=== PATIENT | female | born 1980 | race African-American/Black ===

== ENCOUNTER 2018-05-22 15:13 | Inpatient (IN) | END 2018-05-24 09:41 | disposition left against medical advice (07) | DRG 833 ==

== ENCOUNTER 2018-06-13 12:20 | Inpatient (IN) | END 2018-06-15 13:43 | disposition home or self-care (01) | DRG 807 ==

== ENCOUNTER 2018-09-24 01:58 | Inpatient (IN) | payer BC ==
[~2018-09-24] VITALS: Ht 162.6 cm; Wt 41.3 kg
[~2018-09-24 01:58] MED LIST: PREN1TAB79 PO
[2018-09-24 02:00] VITALS: BP 155/83; PULSE 63; RESP 19
--- NOTE | 2018-09-24 03:06 | HP ---
Date/Time of Note Date/Time of Note DATE: 09/24/18 TIME: 03:06 Assessment/Plan VTE Prophylaxis SCD applied (from Nsg): Yes Pharmacological prophylaxis: LMWH Assessment/Plan Assessment/Plan 1. Abd pain with Intractable nausea and vomiting - May be secondary to gastroenteritis - CT abd/pelvis from [facility] reviewed with incidental findings of pelvic congestion - supportive care - Zofran/Reglan as needed - IVF on board 2. Acute renal failure, prerenal - Cr 1.96 at [facility] - IVF and will avoid nephrotoxic agents 3. Acute dehydration - elevated Hgb/Hct - IVF and monitor for improvement 4. ?PID - will check chlamydia and gonorrhea cultures - advised patient to obtain [employer] for close follow up 5. h/o gastric ulcers - on pepcid at home but ran out of script so has been off for a while - no noted GI bleeding 6. diarrhea - stool studies sent - no recent antibiotic use so doubt cdiff 7. Diet - clears for now 8. Disposition - Admit to med/surg for treatment of MULU and acute dehydration secondary to abdominal sx HPI/ROS Admit Date/Time Admit Date/Time Sep 24, 2018 at 01:58 Hx of Present Illness 38 yo F with PMH gastric ulcers presented to OSH secondary to intractable nausea, vomiting, and abdominal pain for the past 5 days. Patient initially presented to [facility] on 09/20/[address] abd/pelvis was negative. Patient was discharged home and returned to [facility] again and was discharged. Patient presented to [facility] for the same symptoms on 09/23/18 with new findings of MULU. Patient states she was drinking lemonade with her meal when the nausea and vomiting started and has not improved. She denies any jared bleeding in emesis and last episode was in [facility] ED and was green in color. Patient also admits to diarrhea and denies any presence of blood. Patient admi ts to daughter being sick with a cold but no one else in family have similar symptoms. Of note as well, patient admits to currently being on her menstrual cycle but did note discharge prior. She also admits to occassional discomfort when engaging in intercourse with . She had Chlamydia in 2003 but was treated with no further issues. She does not currently follow with a non destructive tester. Labs from [facility] Na 134, k 3.6, Cl 99, Co2 22, Cr 1.96, BUN 17, AST 15, ALT 15, Alk Phos 98, Ca 10.7, Lipase 66 hgb 18.9, hct 53.5 ROS All 12 systems reviewed and pertinent positives as per HPI. All others ne gative. Constitutional: fatigue, nausea; No chills Eyes: No discharge ENT: No congestion Respiratory: No cough, No shortness of breath, No sputum, No wheezing Cardiovascular: No chest pain, No lightheadedness, No palpitations Gastrointestinal: pain, diarrhea, nausea, vomiting; No constipation Genitourinary: bleeding, discharge, flank pain; No hematuria Musculoskeletal: back pain Skin: No bruising, No laceration, No rash Neurologic: No dizziness, No focal-weakness, No headache, No syncope Endocrine: no complaints Lymphatic: no complaints Psychological: nl mood/affect Immunologic: no complaints PMH/Family/Social Past Medical History Medical History: other (gastric ulcer, ovarian cysts) Coded Allergies: codeine (Verified Allergy, Intermediate, 05/22/18) rash and brake out Past Surgical History Past Surgical Hx: noncontributory Family History Significant Family History: no pertinent family hx Social History Alcohol Use: none Smoking Status: Never smoker Drug Use: marijuana Exam/Review of Systems Vital Signs Vitals Vital Signs Date Temp Pulse Resp B/P (MAP) Pulse Ox O2 O2 Flow FiO2 Time Delivery Rate 09/24/18 98.4 19 155/83 98 02:00 (107) Exam Exam General: Patient is a pleasant female, currently lying in bed in no acute distress, thin frame HEENT: Atraumatic, normocephalic. The pupils are equal, round and reactive. Extraocular motor are intact Neck: Supple with full range of motion. No rigidity or meningismus Chest: Nontender Lungs: Clear to auscultation bilaterally no crackles rales or wheezing Heart: Normal S1-S2, Regular rhythm and rate. no murmurs Abdomen: Soft , mildly tender epigastric area, nondistended , bowel sounds are present. No guarding no rebound tenderness , No masses or organomegaly. No costovertebral temporal angle mass Extremities: Normal to inspection, no edema no cyanosis Neurologic: Normal mental status, speech normal, cranial nerves II through XII are intact, motor and sensory are intact, Additional Comments No home medications PATRICIA CHERRY MD Sep 24, 2018 03:06
[2018-09-24] MEDS ORDERED: ACETAMINOPHEN 325 MG TAB PO PRN (03:30)
[2018-09-24] MEDS ORDERED: DOCUSATE SODIUM 100 MG CAP PO PRN (03:30)
[2018-09-24] MEDS ORDERED: MAGNESIUM HYDROXIDE 30ML CUP PO PRN (03:30)
[2018-09-24] MEDS ORDERED: NACL 0.9% 3 ML SYG IV SCH (03:30)
[2018-09-24] MEDS: SOD CHLORIDE 0.9% 1,000 ML IV SCH ×2 (03:43→13:59)
[2018-09-24 07:12] VITALS: BP 134/89; RESP 18
[2018-09-24] MEDS: METOCLOPRAMIDE 10 MG INJ IV PRN ×3 (07:56→20:08)
[2018-09-24] MEDS: morphine 2 MG INJ IV PRN ×3 (07:58→23:08)
[2018-09-24] MEDS ORDERED: FAMOTIDINE 20 MG INJ IV SCH (09:00)
--- NOTE | 2018-09-24 14:11 | QN ---
Documentation Comment 38-year-old male with history of gastric ulcers, here with intractable alissa sea/vomiting/abdominal pain times 5-day duration. Patient continues to have abdominal pain, nausea, vomiting. Patient also admits to bilateral flank pain. She denies any dysuria or hematuria. At this time, we recommend getting a GI consult as patient also has a history of gastric ulcers and her symptoms are relating to her eating. We will also do a urinalysis and culture to rule out any possible UTI. We will also start Cipro and Flagyl empirically. Further imaging studies deferred to GI team. Patient was seen in collaboration with BRAIN Xavier NP Sep 24, 2018 14:11
--- NOTE | 2018-09-24 14:25 | CONS ---
Assessment/Plan Assessment/Plan Hospital Course (Demo Recall) Summary Assessment and Plan: Assessment: Intractable nausea and vomiting -PUD vs marijuana induced versus other Diarrhea- improved History of gastric ulcers Ruling out PID Marijuana use Plan: Clear liquid diet NPO after 09/25/18 0800 EGD tomorrow 09/25/18 Continue anti-emetic medication Endoscopy - risks/benefits/alternatives/indications of procedure and se dation/anesthesia discussed with patient who states understanding and gives informed consent to proceed. Patient has been empirically started on Cipro/Flagyl for diarrhea Change H2 nohemi to PPI Stool studies pending Given CT results at [facility]- will recheck lipase/amylase Patient seen in collaboration with Dr. Hanley CC: STEF HANLEY ; Consultation Date/Type/Reason Admit Date/Time Sep 24, 2018 at 01:58 Date of Consultation: Sep 24, 2018 Type of Consult GI Reason for Consultation Persistent nausea/vomiting/diarrhea Date/Time of Note DATE: 09/24/18 TIME: 14:18 Hx of Present Illness This a 38-year-old female past medical history of gastric ulcers diagnosed in 2014 who initially started complaining of subjective fevers nausea/vomiting, diarrhea she presented to [facility] about 8 days ago at that time was deemed secondary to food poisoning versus viral illness and was discharged. However symptoms continued to persist vomiting became progressively worse as well as abdominal pain she represented to [facility] where laboratory was completed revealing dehydration and elevated creatinine secondary to dehydration likely. There she had a CT abdomen/pelvis with contrast which revealed mild motion related artifact however no definite acute intra-abdominal or pelvic abnormality noted. No evidence of intestinal obstruction or appendicitis, free air or abscess. Borderline prominent pancreatic duct caliber without evidence of acute pancreatitis or biliary ductal dilation, perhaps on a bias of this. Further workup could include consideration for MRCP on a nonemergent basis. Incidentally noted is a prominence of the periuterine vascular bilaterally which can be seen in the setting of pelvic congestion syn drome associated with chronic pelvic pain. Transferred to [facility] due to insurance reasons GI has been consulted for persistent nausea/vomiting and worsening of pain postprandial. At time evaluation patient states diarrhea has resolved and currently complains of upper abdominal discomfort morphine helps but does not relieve the pain completely she feels slightly better with Reglan is only able to tolerate clear liquid diet fairly at this time. Socially patient denies alcohol use, drug use, smoking cigarettes. She does states she smokes marijuana daily however she notes that she has cut down recently but still continues to smoke at least "one blunt" per day. Patient states alissa sea/vomiting, abdominal pain is not relieved by anything in particular and is aggravated by eating. Given clinical picture discussed plan for upper endoscopy tomorrow reviewed risk/benefits alternatives patient verbalized understanding is agreeable to procedure. Additionally will change H2 nohemi to PPI twice daily and will start Carafate. Further recommend agents based on clinical course. Review of Systems: A 12 system, review was conducted and is negative except as noted in the HPI or here. Past Medical History Medical History: other (gastric ulcer, ovarian cysts) Home Meds Reported Medications Vit W-Ca,Fe,FA(<1 mg) ( Vitamins) 1 Each Tablet, 1 EACH PO, TAB 05/22/18 Medications Current Medications Sodium Chloride 1,000 ml @ 100 mls/hr Q10H IV Last administered on 09/24/18at 13:59; Admin Dose 100 MLS/HR; Start 09/24/18 at 03:02 IV Flush (NS 3 ml) 3 ml PER PROTOCOL IV ; Start 09/24/18 at 03:30 Ondansetron HCl (Zofran Inj) 4 mg Q6H PRN IV NAUSEA/VOMITING; Start 09/24/18 at 03:30 Metoclopramide HCl (Reglan) 10 mg Q6H PRN IV NAUSEA/VOMITING Last administered on 09/24/18at 14:06; Admin Dose 10 MG; Start 09/24/18 at 03:30 Acetaminophen (Tylenol Tab) 650 mg Q6H PRN PO .PAIN 1-3 OR TEMP; Start 09/24/18 at 03:30 Docusate Sodium (Colace) 100 mg Q12H PRN PO .CONSTIPATION; Start 09/24/18 at 03:30 Magnesium Hydroxide (Milk Of Mag) 30 ml DAILY PRN PO .CONSTIPATION; Start 09/24/18 at 03:30 Morphine Sulfate (morphine) 2 mg Q4H PRN IV SEVERE PAIN LEVEL 7-10 Last ad ministered on 09/24/18at 13:59; Admin Dose 2 MG; Start 09/24/18 at 04:00 Famotidine (Pepcid) 20 mg Q12 PO ; Start 09/24/18 at 21:00 Allergies: Coded Allergies: codeine (Verified Allergy, Intermediate, 05/22/18) rash and brake out Past Surgical History Past Surgical Hx: noncontributory Social History Alcohol Use: none Smoking Status: Never smoker Drug Use: marijuana Exam/Review of Systems Exam Vitals Vital Signs Date Temp Pulse Resp B/P (MAP) Pulse Ox O2 O2 Flow FiO2 Time Delivery Rate 09/24/18 98.6 18 134/89 94 07:12 (104) 09/24/18 63 02:00 Intake and Output 09/23/18 09/23/18 09/24/18 1515:00 23:00 07:00 IntakeIntake Total 150 ml BalanceBalance 150 ml PHYSICAL EXAMINATION: GENERAL: Well developed, well nourished, alert & oriented x 3, in no acute distress SKIN: No lesions. EYES: Pupils equal reactive to light, no discharge. EARS/NOSE AND THROAT: Ears normal, nose normal NECK: Supple, no masses CHEST: Inspection within normal limits. CARDIOVASCULAR: Heart: Regular rate and rhythm RESPIRATORY: Lungs clear to auscultation GASTROINTESTINAL AND LIVER: Abdomen: Soft, upper abd tenderness, lower back tenderness, non-distended, no hernias, no masses, no organomegaly, no ascites, no guarding, no rebound tenderness, normoactive bowel sounds. Rectal: Deferred. EXTREMITIES: No cyanosis, clubbing or edema. Results Result Diagram: 09/24/18 0534 09/24/18 0534 Results 24hrs Laboratory Tests Test 09/24/18 05:34 White Blood Count 5.6 Red Blood Count 4.92 # Hemoglobin 14.6 # Hematocrit 42.1 # Mean Corpuscular Volume 85.6 Mean Corpuscular Hemoglobin 29.7 Mean Corpuscular Hemoglobin Concent 34.7 Red Cell Distribution Width 12.9 Platelet Count 277 # Mean Platelet Volume 9.4 Immature Granulocytes % 0.400 Neutrophils % 47.9 Lymphocytes % 41.3 Monocytes % 9.3 Eosinophils % 0.2 Basophils % 0.9 Nucleated Red Blood Cells % 0.0 Immature Granulocytes # 0.020 Neutrophils # 2.7 Lymphocytes # 2.3 Monocytes # 0.5 Eosinophils # 0.0 Basophils # 0.1 Nucleated Red Blood Cells # 0.0 Sodium Level 138 Potassium Level 3.3 L Chloride Level 104 Carbon Dioxide Level 22 Anion Gap 12 Blood Urea Nitrogen 16 Creatinine 1.01 H Est Glomerular Filtrat Rate mL/min > 60 Glucose Level 109 Calcium Level 9.1 Magnesium Level 2.0 Total Bilirubin 0.3 Direct Bilirubin 0.00 Indirect Bilirubin 0.3 Aspartate Amino Transf (AST/SGOT) 16 Alanine Aminotransferase (ALT/SGPT) 15 Alkaline Phosphatase 67 Total Protein 7.5 Albumin 4.3 Globulin 3.20 Albumin/Globulin Ratio 1.34 Thyroid Stimulating Hormone (TSH) 1.330 Medications Medication Current Medications Sodium Chloride 1,000 ml @ 100 mls/hr Q10H IV Last administered on 09/24/18at 13:59; Admin Dose 100 MLS/HR; Start 09/24/18 at 03:02 IV Flush (NS 3 ml) 3 ml PER PROTOCOL IV ; Start 09/24/18 at 03:30 Ondansetron HCl (Zofran Inj) 4 mg Q6H PRN IV NAUSEA/VOMITING; Start 09/24/18 at 03:30 Metoclopramide HCl (Reglan) 10 mg Q6H PRN IV NAUSEA/VOMITING Last administered on 09/24/18at 14:06; Admin Dose 10 MG; Start 09/24/18 at 03:30 Acetaminophen (Tylenol Tab) 650 mg Q6H PRN PO .PAIN 1-3 OR TEMP; Start 09/24/18 at 03:30 Docusate Sodium (Colace) 100 mg Q12H PRN PO .CONSTIPATION; Start 09/24/18 at 03:30 Magnesium Hydroxide (Milk Of Mag) 30 ml DAILY PRN PO .CONSTIPATION; Start 09/24/18 at 03:30 Morphine Sulfate (morphine) 2 mg Q4H PRN IV SEVERE PAIN LEVEL 7-10 Last administered on 09/24/18at 13:59; Admin Dose 2 MG; Start 09/24/18 at 04:00 Famotidine (Pepcid) 20 mg Q12 PO ; Start 09/24/18 at 21:00 EMMA MONTESINOS Sep 24, 2018 14:25
[2018-09-24 15:05] VITALS: BP 144/74; PULSE 67; RESP 18
[2018-09-24] MEDS ORDERED: POTASSIUM CHLORIDE (SR) 20 MEQ TAB PO STA (15:18)
[2018-09-24] MEDS: PANTOPRAZOLE (EC) 40 MG TAB PO SCH (17:24)
[2018-09-24] MEDS: SUCRALFATE (100 MG/ML) 10ML CUP PO SCH ×2 (17:24→20:08)
[2018-09-24] MEDS ORDERED: morphine 4 MG/ML VIAL IV SCH (18:05)
[2018-09-24 20:25] VITALS: BP 123/65; PULSE 63; RESP 18
[2018-09-24] MEDS ORDERED: FAMOTIDINE 20 MG TAB PO SCH (21:00)
[2018-09-24] MEDS: metroNIDAZOLE 500 MG/NS (PMX) 100 ML IVPB SCH (21:28)
[2018-09-24] MEDS: CIPROFLOXACIN 400MG/D5W 200 ML IVPB SCH (23:05)
[2018-09-24] MEDS: ONDANSETRON 4 MG INJ IV PRN (23:10)
[2018-09-25] VITALS (11 sets, daily range): BP systolic 115–136; BP diastolic 56–78; PULSE 58–84; RESP 14–28
[2018-09-25] MEDS: SOD CHLORIDE 0.9% 1,000 ML IV SCH ×3 (02:12→14:26)
[2018-09-25] MEDS: morphine 2 MG INJ IV PRN ×4 (04:39→19:12)
[2018-09-25] MEDS: METOCLOPRAMIDE 10 MG INJ IV PRN (04:40)
[2018-09-25] MEDS: PANTOPRAZOLE (EC) 40 MG TAB PO SCH ×2 (06:00→18:00)
[2018-09-25] MEDS: metroNIDAZOLE 500 MG/NS (PMX) 100 ML IVPB SCH ×3 (06:00→22:47)
[2018-09-25] MEDS: SUCRALFATE (100 MG/ML) 10ML CUP PO SCH ×4 (08:28→21:24)
[2018-09-25] MEDS: CIPROFLOXACIN 400MG/D5W 200 ML IVPB SCH ×2 (08:28→21:24)
[2018-09-25] MEDS: ONDANSETRON 4 MG INJ IV PRN (08:31)
[2018-09-25] MEDS ORDERED: TRIMETHOBENZAMIDE 100 MG/ML VIAL IM ONE (11:00)
--- NOTE | 2018-09-25 11:10 | PN ---
Date/Time of Note Date/Time of Note DATE: 09/25/18 TIME: 11:09 Assessment/Plan VTE Prophylaxis SCD applied (from Nsg): Yes Pharmacological prophylaxis: NA/contraindicated Pharm contraindication: low risk/ambulating Lines/Catheters IV Catheter Type (from Nrsg): Peripheral IV Assessment/Plan Hospital Course SUBJECTIVE: Patient continued to have nausea despite Reglan and Zofran. Abdominal pain improved. She is scheduled for EGD evaluation today. OBJECTIVE: Vital signs-see below PHYSICAL EXAM: Constitutional: Well-developed, adequately built, lying in bed comfortably. Psych: nl mood/affect, no complaints Head: atraumatic, normocephalic Eyes: nl conjunctiva, nl sclera ENMT: mucosa pink and moist, nl external ears & nose Neck: non-tender, supple Respiratory: clear to auscultation, normal air movement Cardiovascular: nl pulses, regular rate and rhythm Gastrointestinal: +Tender bilaterally. non-tender, soft, bowel sounds active in all 4 quadrants. Musculoskeletal/extremities: nl extremities to inspection, motor strength equal bilaterally, no focal deficit. Normal pulses,no cyanosis, no edema. Neurological: Alert oriented 3,nl speech, nl strength Skin: nl turgor ASSESSMENT/PLAN:38-year-old male with history of gastric ulcers, daily marijuana use, here with intractable nausea/vomiting/abdominal pain times 5-day duration. 1. Intractable N/V/abd pain/diarrhea -Diarrhea/vomiting resolved. Still with nausea, mild abdominal discomfort -Rule out gastroenteritis versus PUD versus others. -Counseled on cessation of marijuana product -Continue empiric Cipro+ Flagyl, PPI, IV fluids, Reglan. We will add Tigan for persistent nausea. -Scheduled for EGD evaluation, follow-up gastroenterology recommendations 2. History of gastric ulcers -On PPI 3. Marijuana use. -Cessation advised DVT prophylaxis: SCDs PUD prophylaxis: PPI CODE STATUS: Full code Diet: N.p.o. for procedure. Disposition: Continue current management. Follow-up GI recommendations. Patient was seen in collaboration with Result Diagram: 09/24/1834 09/24/18 0534 Results 24hrs Laboratory Tests Test 09/25/18 06:03 Amylase Level 73 Lipase 59 Exam/Review of Systems Exam Vitals Vital Signs Date Temp Pulse Resp B/P (MAP) Pulse Ox O2 O2 Flow FiO2 Time Delivery Rate 09/25/18 98.1 58 16 120/59 9 Room Air 07:55 (79) Intake and Output 09/24/18 09/24/18 09/25/18 1515:00 23:00 07:00 IntakeIntake Total 1710 ml 600 ml 600 ml BalanceBalance 1710 ml 600 ml 600 ml Results Results 24hrs Laboratory Tests Test 09/25/18 06:03 Amylase Level 73 Lipase 59 Medications Medication Current Medications Sodium Chloride 1,000 ml @ 100 mls/hr Q10H IV Last administered on 09/25/18 02:12; Admin Dose 100 MLS/HR; Start 09/24/18 at 03:02 IV Flush (NS 3 ml) 3 ml PER PROTOCOL IV ; Start 09/24/18 at 03:30 Ondansetron HCl (Zofran Inj) 4 mg Q6H PRN IV NAUSEA/VOMITING Last administered on 09/25/18 08:31; Admin Dose 4 MG; Start 09/24/18 at 03:30 Metoclopramide HCl (Reglan) 10 mg Q6H PRN IV NAUSEA/VOMITING Last administered on 09/25/18 04:40; Admin Dose 10 MG; Start 09/24/18 at 03:30 Acetaminophen (Tylenol Tab) 650 mg Q6H PRN PO .PAIN 1-3 OR TEMP; Start 09/24/18 at 03:30 Docusate Sodium (Colace) 100 mg Q12H PRN PO .CONSTIPATION; Start 09/24/18 at 03:30 Magnesium Hydroxide (Milk Of Mag) 30 ml DAILY PRN PO .CONSTIPATION; Start 09/24/18 at 03:30 Morphine Sulfate (morphine) 2 mg Q4H PRN IV SEVERE PAIN LEVEL 7-10 Last administered on 09/25/18 08:34; Admin Dose 2 MG; Start 09/24/18 at 04:00 Ciprofloxacin/ Dextrose 200 ml @ 200 mls/hr Q12 IVPB Last administered on 09/25/18 08:28; Admin Dose 200 MLS/HR; Start 09/24/18 at 21:00 Metronidazole 100 ml @ 100 mls/hr Q8 IVPB Last administered on 09/25/18 06:00; Admin Dose 100 MLS/HR; Start 09/24/18 at 22:00 Pantoprazole (Protonix Tab) 40 mg BID@06,18 PO Last administered on 09/25/18at 06:00; Admin Dose 40 MG; Start 09/24/18 at 18:00 Sucralfate (Carafate Susp) 1 gm QID PO Last administered on 09/25/18at 08:28; Admin Dose 1 GM; Start 09/24/18 at 17:00 BRAIN LIZARRAGA NP Sep 25, 2018 11:09
[2018-09-25] MEDS ORDERED: TRIMETHOBENZAMIDE 100 MG/ML VIAL IM PRN (17:00)
--- NOTE | 2018-09-25 17:42 | PREAC ---
Date/Time of Note Date/Time of Note DATE: 09/25/18 TIME: 17:41 Anesthesia Eval and Record Evaluation Time Pre-Procedure Interview DATE: 09/25/18 TIME: 17:41 Age 38 Sex female NPO: 8 hrs Preoperative diagnosis N/V abd apin Planned procedure EGD Past Medical History Past Medical History: Includes Renal: MULU GI: Other (gastric ulcer) Surgery & Anesthesia Issues No known issue Meds Anticoagulation: No Beta Clifton within 24 hr: No Reason Beta Clifton not given: Pt. not on B-Clifton Reported Medications Vit W-Ca,Fe,FA(<1 mg) ( Vitamins) 1 Each Tablet, 1 EACH PO, TAB 05/22/18 Current Medications Sodium Chloride 1,000 ml @ 100 mls/hr Q10H IV Last administered on 09/25/18at 14:26; Admin Dose 100 MLS/HR; Start 09/24/18 at 03:02 IV Flush (NS 3 ml) 3 ml PER PROTOCOL IV ; Start 09/24/18 at 03:30 Ondansetron HCl (Zofran Inj) 4 mg Q6H PRN IV NAUSEA/VOMITING Last administered on 09/25/18at 08:31; Admin Dose 4 MG; Start 09/24/18 at 03:30 Metoclopramide HCl (Reglan) 10 mg Q6H PRN IV NAUSEA/VOMITING Last administered on 09/25/18at 04:40; Admin Dose 10 MG; Start 09/24/18 at 03:30 Acetaminophen (Tylenol Tab) 650 mg Q6H PRN PO .PAIN 1-3 OR TEMP; Start 09/24/18 at 03:30 Docusate Sodium (Colace) 100 mg Q12H PRN PO .CONSTIPATION; Start 09/24/18 at 03:30 Magnesium Hydroxide (Milk Of Mag) 30 ml DAILY PRN PO .CONSTIPATION; Start 09/24/18 at 03:30 Morphine Sulfate (morphine) 2 mg Q4H PRN IV SEVERE PAIN LEVEL 7-10 Last administered on 09/25/18at 12:51; Admin Dose 2 MG; Start 09/24/18 at 04:00 Ciprofloxacin/ Dextrose 200 ml @ 200 mls/hr Q12 IVPB Last administered on 09/25/18at 08:28; Admin Dose 200 MLS/HR; Start 09/24/18 at 21:00 Metronidazole 100 ml @ 100 mls/hr Q8 IVPB Last administered on 09/25/18at 14:22; Admin Dose 100 MLS/HR; Start 09/24/18 at 22:00 Pantoprazole (Protonix Tab) 40 mg BID@06,18 PO Last administered on 09/25/18at 06:00; Admin Dose 40 MG; Start 09/24/18 at 18:00 Sucralfate (Carafate Susp) 1 gm QID PO Last administered on 09/25/18at 08:28; A dmin Dose 1 GM; Start 09/24/18 at 17:00 Trimethobenzamide HCl (Tigan) 200 mg Q6H PRN IM NAUSEA AND/OR VOMITING; Start 09/25/18 at 17:00 Meds reviewed: Yes Allergies Coded Allergies: codeine (Verified Allergy, Intermediate, 05/22/18) rash and brake out Allergies Reviewed: Yes Labs/Studies Labs Reviewed: Reviewed by anesthesiologist Result Diagram: 09/24/1853309/24/18533 test: Negative Studies: ECG (n/a), CXR (n/a) Pre-procedure Exam Last vitals Vital Signs Date Temp Pulse Resp B/P (MAP) Pulse Ox O2 O2 Flow FiO2 Time Delivery Rate 09/25/18 99.1 64 16 135/62 96 Room Air 14:50 (86) Airway: Adequate mouth opening Mallampati: Mallampati I Teeth: Normal Lung: Normal Heart: Normal ASA Physical Status ASA physical status: 2 Emergency: None Planned Anesthetic General/MAC: MAC Planned Pain Management Parenteral pain med Pre-operative Attestations Prior to commencing anesthesia and surgery, the patient was re-evaluated, there was verification of: *The patient's identity *The results of appropriate recent lab work and preoperative vital signs *The above evaluation not changing prior to induction *Anesthetic plan, risk benefits, alternative and complications discussed with patient/family; questions answered; patient/family understands, accepts and wishes to proceed. LELAND HIGGINS MD Sep 25, 2018 17:42
[2018-09-25] MEDS ORDERED: FENTAnyl 50 MCG/ML VIAL ONE (17:54)
[2018-09-25] MEDS ORDERED: PROPOFOL 20 ML ONE ×2 (17:54→18:12)
--- NOTE | 2018-09-25 17:59 | HPN ---
Date/Time of Note Date/Time of Note DATE: 09/25/18 TIME: 17:59 Interval H&P Admission Note Pt. seen H&P reviewed: No system changes EULOGIO FERRARO MD Sep 25, 2018 17:59
[2018-09-25] MEDS ORDERED: ONDANSETRON 4 MG INJ IV PRN (18:00)
--- NOTE | 2018-09-25 20:32 | PAC ---
Date/Time of Note Date/Time of Note DATE: 09/25/18 TIME: 20:32 Post-Anesthesia Notes Post-Anesthesia Note Last documented vital signs Vital Signs Date Temp Pulse Resp B/P (MAP) Pulse Ox O2 O2 Flow FiO2 Time Delivery Rate 09/25/18 98.2 59 16 136/78 100 Room Air 19:06 (97) 09/25/18 8.0 18:27 Activity: WNL Respiratory function: WNL Cardiovascular function: WNL Mental status: Baseline Pain reasonably controlled: Yes Hydration appropriate: Yes Nausea/Vomiting absent: No LELAND HIGGINS MD Sep 25, 2018 20:32
[2018-09-25] MEDS ORDERED: HYDROCODONE/APAP (5/325) TAB PO PRN (23:30)
[2018-09-25] MEDS ORDERED: IBUPROFEN 400 MG TAB NGT PRN (23:30)
[2018-09-26] MEDS: traMADol 50 MG TAB PO PRN ×2 (00:01→07:54)
[2018-09-26 02:00] VITALS: BP 117/61; PULSE 71; RESP 19
[2018-09-26] MEDS: metroNIDAZOLE 500 MG/NS (PMX) 100 ML IVPB SCH (05:45)
[2018-09-26] MEDS: PANTOPRAZOLE (EC) 40 MG TAB PO SCH (05:45)
[2018-09-26 07:40] VITALS: BP 126/67; PULSE 63; RESP 18
[2018-09-26] MEDS: METOCLOPRAMIDE 10 MG INJ IV PRN (07:57)
[2018-09-26] MEDS: SUCRALFATE (100 MG/ML) 10ML CUP PO SCH (08:03)
[2018-09-26] MEDS: CIPROFLOXACIN 400MG/D5W 200 ML IVPB SCH (09:28)
--- NOTE | 2018-09-26 10:14 | PDOCDIS ---
Discharge Instructions CONDITION [id number] Patient Condition: [id number] Stable HOME CARE INSTRUCTIONS: [id number] Diet Instructions: [id number] Regular FOLLOW UP/APPOINTMENTS Follow-up Plan Follow-up with primary care physician in 1 week Follow-up with 's office for biopsy result. [id number] [facility] [place] [address] Office Try using lactose-free milk, probiotics daily, cessation of marijuana products. BRAIN LIZARRAGA NP Sep 26, 2018 10:14
[2018-09-26] MEDS ORDERED: FAMO-96 PO (10:17)
[2018-09-26] MEDS ORDERED: ONDA4TAB8 PO (10:17)
--- NOTE | 2018-09-26 10:21 | DS ---
Date/Time of Note Date/Time of Note DATE: 09/26/18 TIME: 10:19 Discharge Summary Admission/Discharge Info Admit Date/Time Sep 24, 2018 at 01:58 Discharge Date/Time Discharge Diagnosis 1. Abdominal pain/intractable nausea/vomiting, likely GERD versus marijuana hyperemesis syndrome. Resolved. 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 EGD. Impression: Normal esophagus. No evidence of peptic ulcer disease, gastritis. Hospital Course 38-year-old male with history of gastric ulcers, daily marijuana use, here with intractable nausea/vomiting/abdominal pain times 5-day duration. Apparently, patient has been having increased use of marijuana recently secondary to family stress. Patient was ruled out for UTI, peptic ulcer disease. She had endoscopy on 09/25/2018. Patient's symptoms resolved. Stool C. difficile studies were not sent as there was no diarrhea in house. Nevertheless, she was treated with Cipro and Flagyl. She was able to tolerate diet and activities well. As per GI, her symptoms are more likely marijuana hyperemesis syndrome. There is no further inpatient workup indicated and patient is medically stable for discharge on Pepcid and PRN antiemetics. I counseled her on cessation of marijuana products, try using lactose-free milk as her symptoms get worse with drinking milk, limit use of coffee, try taking probiotics. Patient verbalized instructions. Approximately 60 m spent on coordinating the discharge on this patient. Patient was also advised to follow-up with 's office for EGD biopsy findings if she has not heard from the office. Patient was seen in collaboration with [facility] Active Scripts Ondansetron Hcl* (Zofran*) 4 Mg Tablet, 4 MG PO Q6H PRN for NAUSEA AND OR VOMITING, #30 TAB Prov:LIZARRAGA,BRAIN V. METEOROLOGIST LIAISON 09/26/18 Famotidine* (Pepcid*) 20 Mg Tablet, 20 MG PO BED TIME, #30 TAB Prov:LIZARRAGA,BRAIN V. METEOROLOGIST LIAISON 09/26/18 Reported Medications Vit W-Ca,Fe,FA(<1 mg) ( Vitamins) 1 Each Tablet, 1 EACH PO, TAB 05/22/18 Follow-up Plan Follow-up with primary care physician in 1 week Follow-up with 's office for biopsy result. [id number] [facility] [address] [place] [address] Office Try using lactose-free milk, probiotics daily, cessation of marijuana products. Primary Care Provider Not On Staff Doctor Pending Labs Laboratory Tests Test 09/25/18 11:30 09/26/18 05:47 Urine Color STRAW (YELLOW) Urine Clarity CLEAR (CLEAR) Urine pH 5.0 (5.0-9.0) Urine Specific [place] 1.003 (1.003-1.030) Urine Ketones TRACE mg/dL (NEGATIVE) Urine Nitrite NEGATIVE mg/dL (NEGATIVE) Urine Bilirubin NEGATIVE mg/dL (NEGATIVE) Urine Urobilinogen NEGATIVE mg/dL (NEGATIVE) Urine Leukocyte Esterase NEGATIVE Roque/ul Urine Microscopic RBC 0 /HPF (0-5) Urine Microscopic WBC 0 /HPF (0-5) Urine Squamous FEW /HPF (FEW) Epithelial Cells Urine Bacteria FEW /HPF (NONE SEEN) Urine Mucus FEW /HPF (NONE SEEN) Urine Hemoglobin 3+ mg/dL (NEGATIVE) Urine Glucose NEGATIVE mg/dL (NEGATIVE) Urine Total Protein NEGATIVE mg/dl (NEGATIVE) White Blood Count 3.0 10^3/ul (4.8-10.8) Red Blood Count 3.97 10^6/ul (4.20-5.40) Hemoglobin 12.0 g/dl (12.0-16.0) Hematocrit 34.6 % (37.0-47.0) Mean Corpuscular Volume 87.2 fl (82.0-101.0) Mean Corpuscular 30.2 pg (29.0-33.0) Hemoglobin Mean Corpuscular 34.7 g/dl (32.0-37.0) Hemoglobin Concent Red Cell Distribution 12.5 % (11.5-14.5) Width Platelet Count 219 10^3/UL (140-415) Mean Platelet Volume 9.4 fl (7.4-10.4) Immature Granulocytes % 0.300 % (0.001-0.429) Neutrophils % 48.9 % (39.0-77.0) Lymphocytes % 36.8 % (15.0-51.0) Monocytes % 9.4 % (0.0-11.0) Eosinophils % 3.3 % (0.0-7.0) Basophils % 1.3 % (0.0-2.0) Nucleated Red Blood Cells 0.0 /100WBC (0.0-0.0) % Immature Granulocytes # 0.010 10^3/ul (0.0-0.031) Neutrophils # 1.5 10^3/ul (1.6-7.5) Lymphocytes # 1.1 10^3/ul (0.8-2.9) Monocytes # 0.3 10^3/ul (0.3-0.9) Eosinophils # 0.1 10^3/ul (0.0-0.5) Basophils # 0.0 10^3/ul (0.0-0.1) Nucleated Red Blood Cells 0.0 10^3/ul (0.0-0.0) # Sodium Level 140 mmol/L (135-144) Potassium Level 3.5 mmol/L (3.5-5.1) Chloride Level 108 mmol/L (97-110) Carbon Dioxide Level 22 mmol/L (21-31) Anion Gap 10 (5-13) Blood Urea Nitrogen 6 mg/dl (7-20) Creatinine 0.78 mg/dl (0.44-1.00) Est Glomerular Filtrat > 60 mL/min (>60) Rate mL/min Glucose Level 73 mg/dl (70-220) Calcium Level 8.4 mg/dl (8.4-10.2) Magnesium Level 1.6 mg/dl (1.7-2.5) Microbiology Date/Time Source Procedure Growth Status 09/25/18 11:30 Clean Catch Urine Urine Culture - Preliminary NO Resulted GROWTH AFTER 24 HOURS BRAIN LIZARRAGA NP Sep 26, 2018 10:21
== END 2018-09-26 11:50 | disposition home or self-care (01) | DRG 392 ==
LOC: PP2 01:58
PROVIDERS: ADMIT Internal Medicine; ATTEND Internal Medicine
PROC: 0DB68ZX Excision of Stomach, Via Natural or Artificial Opening Endoscopic, Diagnostic (ICD-10-PCS; principal; 2018-09-25 17:30)
DX: R11.2 Nausea with vomiting, unspecified (principal); N17.9 Acute kidney failure, unspecified; E44.0 Moderate protein-calorie malnutrition; Z68.1 Body mass index [BMI] 19.9 or less, adult; T40.7X5A Adverse effect of cannabis (derivatives), initial encounter; E86.0 Dehydration; R19.7 Diarrhea, unspecified; K21.9 Gastro-esophageal reflux disease without esophagitis; Y92.019 Unspecified place in single-family (private) house as the place of occurrence of the external cause; Z87.11 Personal history of peptic ulcer disease
CPT/HCPCS: 80048; 80053; 81001; 82150; 83690; 83735; 84443; 85025; 87086; 87591; 88305; 88312; J0744; J2270; J2405; J2765; J3010; J3250; J7030

== ENCOUNTER 2018-12-09 15:04 | Inpatient (IN) | payer BC ==
[~2018-12-09] VITALS: Ht 162.6 cm; Wt 37.3 kg
[~2018-12-09 15:04] MED LIST changes: +FAMO-96 PO; +ONDA4TAB8 PO; -PREN1TAB79 PO
[2018-12-09] MEDS ORDERED: morphine 4 MG/ML VIAL IV STA ×2 (16:46→22:16)
[2018-12-09] MEDS ORDERED: ONDANSETRON 4 MG INJ IV STA (16:46)
[2018-12-09] MEDS ORDERED: SODIUM CHLORIDE 0.9% 1L BAG IV* STA (16:46)
[2018-12-09] MEDS ORDERED: CEFTRIAXONE 1 GM/50 ML (PMX) 50 ML IVPB STA (16:46)
[2018-12-09] MEDS ORDERED: CEPH250C PO (17:53)
[2018-12-09] MEDS ORDERED: ACETAMINOPHEN 325 MG TAB PO PRN ×2 (19:00→22:30)
[2018-12-09] MEDS ORDERED: ONDANSETRON 4 MG INJ IV PRN (19:00)
--- NOTE | 2018-12-09 19:04 | ERD ---
ER Documentation Chief Complaint Chief Complaint vomit since Sun, dx [email or web address] on [email or web address] no relief w meds. sob. weak. HPI Patient is a 38-year-old female with history of some renal disease who presents with back pain. She said that she had kidney problems with infection that started on Sunday. She has bilateral flank pain and subjective fevers. She was seen at [place] emergency department on December 06 and was told that she had a UTI was placed on antibiotics. Her creatinine at that time was 1.6. She has been vomiting and not getting better. She had ultrasound of the gallbladder and chest x-ray done on that day as well. Upon review of old medical records the patient one previous visit to the ER in September 2018. Review of the emergency department information exchange system shows visits to 2 separate emergency departments for a total of 4 visits over 1 year. Her primary doctor is Dr. Breen. ROS All systems reviewed and are negative except as per history of present illness. Medications Home Meds Reported Medications Cephalexin* (Cephalexin*) 250 Mg Capsule, 250 MG PO Q6, #28 CAP FOR 7 DAYS,START DATE 12/07/18 12/09/18 Discontinued Scripts Ondansetron Hcl* (Zofran*) 4 Mg Tablet, 4 MG PO Q6H PRN for NAUSEA AND OR VOMITING, #30 TAB Prov:LIZARRAGA,BRAIN V. SECURITY SYSTEMS TECHNICIAN 09/26/18 Famotidine* (Pepcid*) 20 Mg Tablet, 20 MG PO BED TIME, #30 TAB Prov:LIZARRAGA,BRAIN V. SECURITY SYSTEMS TECHNICIAN 09/26/18 Allergies Allergies: Coded Allergies: codeine (Verified Allergy, Intermediate, 12/09/18) rash and brake out PMhx/Soc History of Surgery: No Anesthesia Reaction: No Hx Neurological Disorder: No Hx Respiratory Disorders: No Hx Cardiac Disorders: No Hx Psychiatric Problems: No Hx Miscellaneous Medical Probl: Yes (FREQUENT UTI) Hx Alcohol Use: No Hx Substance Use: Yes (occasional use) Hx Tobacco Use: No Smoking Status: Never smoker FmHx Family History: diabetes Physical Exam Vitals Vital Signs Date Temp Pulse Resp B/P (MAP) Pulse Ox O2 O2 Flow FiO2 Time Delivery Rate 12/09/18 78 17 120/95 98 Room Air 17:41 (103) 12/09/18 98.8 139 26 173/76 100 15:46 (108) Physical Exam Const: Moderate distress Head: Atraumatic Eyes: Normal Conjunctiva ENT: Normal External Ears, Nose and Mouth. Neck: Full range of motion. No meningismus. Resp: Clear to auscultation bilaterally Cardio: Tachycardic rate without murmur Abd: Soft, diffuse tenderness to palpation Skin: No petechiae or rashes Back: Bilateral CVA tenderness to palpation Ext: No cyanosis, or edema Neur: Awake and alert Psych: Normal Mood and Affect Result Diagram: 12/09/18 1708 12/09/18 1708 Results 24 hrs Laboratory Tests Test 12/09/18 17:08 12/09/18 17:14 12/09/18 17:44 White Blood Count 6.2 10^3/ul Red Blood Count 6.35 10^6/ul Hemoglobin 18.7 g/dl Hematocrit 53.3 % Mean Corpuscular Volume 83.9 fl Mean Corpuscular Hemoglobin 29.4 pg Mean Corpuscular 35.1 g/dl Hemoglobin Concent Red Cell Distribution Width 12.0 % Platelet Count 460 10^3/UL Mean Platelet Volume 9.1 fl Immature Granulocytes % 0.500 % Neutrophils % 62.0 % Lymphocytes % 25.4 % Monocytes % 11.1 % Eosinophils % 0.0 % Basophils % 1.0 % Nucleated Red Blood Cells % 0.0 /100WBC Immature Granulocytes # 0.030 10^3/ul Neutrophils # 3.8 10^3/ul Lymphocytes # 1.6 10^3/ul Monocytes # 0.7 10^3/ul Eosinophils # 0.0 10^3/ul Basophils # 0.1 10^3/ul Nucleated Red Blood Cells # 0.0 10^3/ul Prothrombin Time 12.6 Sec Prothrombin Time Ratio 1.0 INR International 0.93 Normalized Ratio Activated Partial Thromboplast 33.9 Sec Time Sodium Level 135 mmol/L Potassium Level 4.0 mmol/L Chloride Level 94 mmol/L Carbon Dioxide Level 17 mmol/L Anion Gap 24 Blood Urea Nitrogen 47 mg/dl Creatinine 2.68 mg/dl Est Glomerular Filtrat 24 mL/min Rate mL/min Glucose Level 126 mg/dl Calcium Level 10.8 mg/dl Total Bilirubin 0.6 mg/dl Direct Bilirubin 0.00 mg/dl Indirect Bilirubin 0.6 mg/dl Aspartate Amino Transf (AST/SGOT) 22 IU/L Alanine < 6 IU/L Aminotransferase (ALT/SGPT) Alkaline Phosphatase 125 IU/L Troponin I < 0.012 ng/ml Total Protein 10.7 g/dl Albumin 5.4 g/dl Globulin 5.30 g/dl Albumin/Globulin Ratio 1.01 POC Venous Lactate 2.3 mmol/L Urine Color YELLOW Urine Clarity CLOUDY Urine pH 5.0 Urine Specific [place] 1.029 Urine Ketones 1+ mg/dL Urine Nitrite NEGATIVE mg/dL Urine Bilirubin NEGATIVE mg/dL Urine Urobilinogen NEGATIVE mg/dL Urine Leukocyte Esterase TRACE Roque/ul Urine Microscopic RBC 3 /HPF Urine Microscopic WBC 67 /HPF Urine Squamous Epithelial Cells FEW /HPF Urine Hemoglobin NEGATIVE mg/dL Urine Glucose NEGATIVE mg/dL Urine Total Protein 2+ mg/dl Urine Test NEGATIVE Current Medications Medications Dose Sig/Jam Start Time Status Last (Trade) Ordered Route PRN Stop Time Admin Dose Reason Admin Sodium 1,120 ml BOLUS OVER 2 12/09/18 DC 12/09/18 Chloride HOURS STAT 16:46 12/09/18 17:09 (NS) IV* 16:47 Morphine 4 mg ONCE STAT 12/09/18 DC 12/09/18 Sulfate IV 16:46 12/09/18 17:10 (morphine) 16:47 Ondansetron 4 mg ONCE STAT 12/09/18 DC 12/09/18 HCl (Zofran IV 16:46 12/09/18 17:10 Inj) 16:47 Ceftriaxone 50 ml @ ONCE STAT 12/09/18 DC 12/09/18 Sodium 100 mls/hr IVPB 16:46 12/09/18 17:43 17:15 Ondansetron 4 mg BRIDGE ORDER 12/09/18 HCl (Zofran PRN IV 19:00 12/10/18 Inj) NAUSEA/VOMITI 18:59 NG 650 mg ER BRIDGE 12/09/18 Acetaminophen PRN PO 19:00 12/10/18 (Tylenol .MILD PAIN 18:59 Tab) 1-3 OR TEMP Procedures/MDM Chest x-ray negative per radiology. CT abdomen pelvis pending at this time. EKG read by me: Rate/Rhythm: Regular rate and rhythm at a normal rate Intervals: Normal Impression: No evidence of ischemia or arrhythmia Sepsis Documentation: Patient's infectious symptoms have not stabilized and the patient is at risk of rapid decompensation. The patient will be admitted for careful hydration, antibiotic therapy, and infectious source control. SEVERE SEPSIS CRITERIA: Infectious source: Pyelonephritis End organ damage indicated by: Lactate greater than 2 SEPSIS MANAGEMENT Time of recognition of sepsis: 1713. Time of recognition of severe sepsis: 1713. Time of recognition of septic shock: No septic shock at this time. 3 HOUR BUNDLE Blood cultures x 2 before broad-spectrum antibiotics: Yes 30 ml/kg NS bolus completed Initial lactate 2.3 Repeat lactate pending SEPTIC SHOCK ASSESSMENT: No lactic acid > 4.0 No persistent hypotension (SBP < 90 or 40 mmHg drop, MAP < 65) despite 30 mL/kg IV fluid bolus VOLUME REASSESSMENT FOR SEPTIC SHOCK: No septic shock at this time PERSISTENT HYPOTENSION TREATMENT: Comfort care no Central line not Required Vasopressor started not required I considered further perfusion assessment with CVP measurement, SCVO2, bedside ultrasound volume assessment, passive leg raise, trial of further fluid bolus. And proceeded with 30 ml/kg fluid bolus of NSS, broad spectrum antibiotics, and admission. The patient will be admitted to the care of the panel team. The patient has acidosis as well as acute renal failure. Her creatinine has increased from her 1.6 on December 06. I believe this is likely from dehydration and prerenal renal failure. CRITICAL CARE Critical care time 35 minutes Emergent fluid management while maintaining close respiratory support. Provision of immediate and broad-spectrum antibiotic therapy. Simultaneous assessment for possible sources in order to direct targeted therapy. Consideration for invasive and chemical support to prevent cardiopulmonary collapse. Critical care time is independent of procedures performed. Departure Diagnosis: Primary Impression: Severe sepsis Additional Impressions: ARF (acute renal failure) Acute renal failure type: unspecified Qualified Codes: N17.9 - Acute kidney failure, unspecified Pyelonephritis Condition: Serious EVA YUNG MD December 09, 2018 19:04
[2018-12-09] MEDS: SOD CHLORIDE 0.9% 1,000 ML IV SCH (22:12)
[2018-12-09] MEDS ORDERED: NACL 0.9% 3 ML SYG IV SCH (22:30)
--- NOTE | 2018-12-10 05:41 | HP ---
Date/Time of Note Date/Time of Note DATE: 12/10/18 TIME: 05:39 Assessment/Plan VTE Prophylaxis Pharmacological prophylaxis: heparin Lines/Catheters IV Catheter Type (from Nrsg): Saline Lock Assessment/Plan Assessment/Plan 1. UTI with possible pyelonephritis -IV antibiotic, IV fluid -Follow-up culture results -Pain management 2. Acute renal insufficiency -NS IVF for now 3. Erythrocytosis: Likely secondary to dehydration -IV fluid Result Diagram: 12/09/18 1708 12/09/18 1708 Results 24hrs Laboratory Tests Test 12/09/18 17:08 12/09/18 17:14 12/09/18 17:44 12/09/18 21:28 White Blood Count 6.2 # Red Blood Count 6.35 #H Hemoglobin 18.7 #H Hematocrit 53.3 #H Mean Corpuscular Volume 83.9 Mean Corpuscular 29.4 Hemoglobin Mean Corpuscular 35.1 Hemoglobin Concent Red Cell Distribution 12.0 Width Platelet Count 460 #H Mean Platelet Volume 9.1 Immature Granulocytes % 0.500 H Neutrophils % 62.0 Lymphocytes % 25.4 Monocytes % 11.1 H Eosinophils % 0.0 Basophils % 1.0 Nucleated Red Blood 0.0 Cells % Immature Granulocytes # 0.030 Neutrophils # 3.8 Lymphocytes # 1.6 Monocytes # 0.7 Eosinophils # 0.0 Basophils # 0.1 Nucleated Red Blood 0.0 Cells # Prothrombin Time 12.6 Prothrombin Time Ratio 1.0 INR International 0.93 Normalized Ratio Activated 33.9 Partial Thromboplast Time Sodium Level 135 Potassium Level 4.0 Chloride Level 94 L Carbon Dioxide Level 17 L Anion Gap 24 H Blood Urea Nitrogen 47 H Creatinine 2.68 H Est Glomerular Filtrat 24 L Rate mL/min Glucose Level 126 Calcium Level 10.8 H Total Bilirubin 0.6 Direct Bilirubin 0.00 Indirect Bilirubin 0.6 Aspartate Amino 22 Transf (AST/SGOT) Alanine < 6 L Aminotransferase (ALT/SG PT) Alkaline Phosphatase 125 H Troponin I < 0.012 Total Protein 10.7 H Albumin 5.4 H Globulin 5.30 H Albumin/Globulin Ratio 1.01 POC Venous Lactate 2.3 *H Urine Color YELLOW Urine Clarity CLOUDY A Urine pH 5.0 Urine Specific [place] 1.029 Urine Ketones 1+ H Urine Nitrite NEGATIVE Urine Bilirubin NEGATIVE Urine Urobilinogen NEGATIVE Urine Leukocyte Esterase TRACE A Urine Microscopic RBC 3 Urine Microscopic WBC 67 H Urine Squamous FEW Epithelial Cells Urine Hemoglobin NEGATIVE Urine Glucose NEGATIVE Urine Total Protein 2+ H Urine Test NEGATIVE Lactic Acid Level 0.9 Test 12/09/18 21:37 POC Venous Lactate 1.1 HPI/ROS Admit Date/Time Admit Date/Time Hx of Present Illness This is a 38-year-old female with possible history of GERD who presented to the ER complaining of bilateral flank pain. Patient was recently diagnosed with UTI and has been taking antibiotic. In the ER her UA was consistent with UTI. CT abdomen/pelvis without acute findings. Initial lactic acid was 2.3. PMH/Family/Social Past Medical History Past Surgical Hx: other (HPI) Family History Significant Family History: no pertinent family hx Social History Alcohol Use: none Smoking Status: Never smoker Drug Use: none Exam Constitutional: alert, oriented, well developed Head: normocephalic, atraumatic Eyes: EOMI, PERRL Respiratory: clear to auscultation, normal air movement Cardiovascular: regular rate and rhythm, nl pulses Gastrointestinal: soft, other (Right lower quadrant tenderness elicited on palpation. Patient also with right flank pain) Extremities: normal pulses Medications Current Medications Ondansetron HCl (Zofran Inj) 4 mg BRIDGE ORDER PRN IV NAUSEA/VOMITING; Start 12/09/18 at 19:00; Stop 12/10/18 at 18:59 Acetaminophen (Tylenol Tab) 650 mg ER BRIDGE PRN PO .MILD PAIN 1-3 OR TEMP Last administered on 12/09/18at 21:59; Admin Dose 650 MG; Start 12/09/18 at 19:00; Stop 12/10/18 at 18:59 Sodium Chloride 1,000 ml @ 125 mls/hr Q8H IV Last administered on 12/09/18at 22:12; Admin Dose 125 MLS/HR; Start 12/09/18 at 22:12; Stop 12/12/18 at 22:11 IV Flush (NS 3 ml) 3 ml PER PROTOCOL IV ; Start 12/09/18 at 22:30 Acetaminophen (Tylenol Tab) 650 mg Q6H PRN PO .PAIN 1-3 OR TEMP; Start 12/09/18 at 22:30 Morphine Sulfate (morphine) 3 mg Q4H PRN IV .SEVERE PAIN 7-10; Start 12/09/18 at 22:30 Coded Allergies: codeine (Verified Allergy, Intermediate, 12/09/18) rash and brake out Past Surgical History Past Surgical Hx: noncontributory Family History Significant Family History: no pertinent family hx Social History Smoking Status: Never smoker Exam/Review of Systems Vital Signs Vitals Vital Signs Date Temp Pulse Resp B/P (MAP) Pulse Ox O2 O2 Flow FiO2 Time Delivery Rate 12/10/18 74 16 119/87 99 Room Air 04:09 (98) 12/10/18 98.8 00:15 MEGAN CANCHOLA MD December 10, 2018 05:41
[2018-12-10] MEDS: morphine 4 MG/ML VIAL IV PRN ×4 (06:35→21:42)
[2018-12-10] MEDS: SOD CHLORIDE 0.9% 1,000 ML IV SCH ×3 (06:35→18:29)
[2018-12-10 08:58] VITALS: BP 111/75; PULSE 60; RESP 20
[2018-12-10 09:00] VITALS: Ht 162.6 cm; Wt 37.3 kg
--- NOTE | 2018-12-10 10:01 | CONS ---
DATE OF ADMISSION: 12/09/2018 DATE OF CONSULTATION: 12/10/2018 TYPE OF CONSULTATION: Nephrology. REASON FOR CONSULTATION: Acute kidney injury. PHYSICIAN REQUESTING CONSULT: Megan Canchola MD HISTORY OF PRESENT ILLNESS: This is a 38-year-old female with a past medical history of GERD who pre sents to the [facility] with complaints of bilateral flank pain. The patient state s she was recently diagnosed with a urinary tract infection, has been taking antibiotics. The patien t states her pain however, in her bilateral flank has increased over the past several days associated with worsening abdominal pain, nausea, vomiting. As a result, she came to the Emergency Room. Upon arrival, the patient had a CT scan of abdomen and pelvis that showed no acute findings. Urinalysis was performed which showed evidence of pyuria. The patient was started on IV fluids and antibiotic t herapy. In terms of patient's renal history, the patient states that she has had no history of chronic kidney disease. Patient denies any prior history of acute kidney injury. The patient denies any family hi story of coronary artery disease. She does state that she has recurrent infection. The patient does admit to nausea, vomiting. She denies any NSAID use, any rashes. PAST MEDICAL HISTORY: History of gastroesophageal reflux disease, history of UTI. FAMILY HISTORY: No family history of kidney disease. SOCIAL HISTORY: Does not drink, smoke, do drugs. MEDICATIONS: Reviewed. ALLERGIES: Have been reviewed, please see list. PAST SURGICAL HISTORY: Has been reviewed. REVIEW OF SYSTEMS: A 14-point review of systems conducted. Pertinent positives stated in HPI, other posada negative. PHYSICAL EXAMINATION: VITAL SIGNS: Blood pressure is 101/79, respirations 16, pulse 68, temperature 98.0. HEENT: Head is normocephalic. NECK: Supple. HEART: Regular rate. LUNGS: Show diminished breath sounds at base. ABDOMEN: Soft, nontender to palpation without rebound or guarding. EXTREMITIES: Negative for clubbing, cyanosis, no edema. DERMATOLOGIC: No rashes. MUSCULOSKELETAL: No joint effusion. NEUROLOGIC: No change in exam. LABORATORY DATA: Have been reviewed. IMAGING STUDIES: Have been reviewed. ASSESSMENT AND PLAN: This is a 38-year-old female presenting with: 1. Nonoliguric acute kidney injury with previously normal baseline creatinine. Etiology of acute ki dney injury is likely secondary to volume depletion, hemodynamics. The patient's renal function has improved with IV hydration. Urinalysis was reviewed, no active sediment. The patient does have pyur ia, which can be seen in setting of urinary tract infection. Recommendation is to continue current m edical management. Continue IV antibiotics. Will deescalate IV fluids. Continue supportive care, r enally dose all meds, avoid nephrotoxins. 2. Lactic acidosis. Etiology is likely secondary to hemodynamics, volume depletion. The patient's lactic acid levels improved with IV hydration. Continue to monitor. 4. Metabolic acidosis secondary to acute kidney injury, resolved. 5. Mineral bone disorder, monitor calcium and phosphorus levels. 6. Urinary tract infection. Continue current medical management. Continue antibiotic therapy. Fol low up cultures. 7. Erythrocytosis. Etiology is secondary to volume depletion. The patient's hemoglobin levels have improved with IV fluids, continue to monitor. Thank you, Dr. Canchola, for this interesting consult. It will be a pleasure to follow patient with you throughout the hospital course. Dictated By: JES GARNER DO NR/NTS Conf#: [id number] DID#: [id number] CC: MEGAN CANCHOLA MD;*EndCC*
[2018-12-10 11:55] VITALS: BP 109/75; PULSE 64; RESP 20
--- NOTE | 2018-12-10 14:35 | PN ---
Date/Time of Note Date/Time of Note DATE: 12/10/18 TIME: 14:26 Assessment/Plan VTE Prophylaxis SCD applied (from Nsg): Yes Pharmacological prophylaxis: other Pharm contraindication: low risk/ambulating Lines/Catheters IV Catheter Type (from Nrsg): Peripheral IV Urinary Cath still in place: No Assessment/Plan Assessment/Plan 1. UTI, on 2. Dehydration from vomiting and poor intake from UTI, improved with IVF 3. Acute renal failure due to dehydration, resolved Result Diagram: 12/10/18 0552 12/10/18 0552 Results 24hrs Laboratory Tests Test 12/09/18 17:08 12/09/18 17:14 12/09/18 17:44 12/09/18 21:28 White Blood Count 6.2 # Red Blood Count 6.35 #H Hemoglobin 18.7 #H Hematocrit 53.3 #H Mean Corpuscular Volume 83.9 Mean Corpuscular 29.4 Hemoglobin Mean Corpuscular 35.1 Hemoglobin Concent Red Cell Distribution 12.0 Width Platelet Count 460 #H Mean Platelet Volume 9.1 Immature Granulocytes % 0.500 H Neutrophils % 62.0 Lymphocytes % 25.4 Monocytes % 11.1 H Eosinophils % 0.0 Basophils % 1.0 Nucleated Red Blood 0.0 Cells % Immature Granulocytes # 0.030 Neutrophils # 3.8 Lymphocytes # 1.6 Monocytes # 0.7 Eosinophils # 0.0 Basophils # 0.1 Nucleated Red Blood 0.0 Cells # Prothrombin Time 12.6 Prothrombin Time Ratio 1.0 INR International 0.93 Normalized Ratio Activated 33.9 Partial Thromboplast Time Sodium Level 135 Potassium Level 4.0 Chloride Level 94 L Carbon Dioxide Level 17 L Anion Gap 24 H Blood Urea Nitrogen 47 H Creatinine 2.68 H Est Glomerular Filtrat 24 L Rate mL/min Glucose Level 126 Calcium Level 10.8 H Total Bilirubin 0.6 Direct Bilirubin 0.00 Indirect Bilirubin 0.6 Aspartate Amino 22 Transf (AST/SGOT) Alanine < 6 L Aminotransferase (ALT/SG PT) Alkaline Phosphatase 125 H Troponin I < 0.012 Total Protein 10.7 H Albumin 5.4 H Globulin 5.30 H Albumin/Globulin Ratio 1.01 POC Venous Lactate 2.3 *H Urine Color YELLOW Urine Clarity CLOUDY A Urine pH 5.0 Urine Specific [place] 1.029 Urine Ketones 1+ H Urine Nitrite NEGATIVE Urine Bilirubin NEGATIVE Urine Urobilinogen NEGATIVE Urine Leukocyte Esterase TRACE A Urine Microscopic RBC 3 Urine Microscopic WBC 67 H Urine Squamous FEW Epithelial Cells Urine Hemoglobin NEGATIVE Urine Glucose NEGATIVE Urine Total Protein 2+ H Urine Test NEGATIVE Lactic Acid Level 0.9 Test 12/09/18 21:37 12/10/18 05:52 POC Venous Lactate 1.1 White Blood Count 4.1 #L Red Blood Count 4.62 # Hemoglobin 13.8 # Hematocrit 39.6 # Mean Corpuscular Volume 85.7 Mean Corpuscular 29.9 Hemoglobin Mean Corpuscular 34.8 Hemoglobin Concent Red Cell Distribution 12.1 Width Platelet Count 285 # Mean Platelet Volume 9.1 Immature Granulocytes % 0.200 Neutrophils % 39.1 Lymphocytes % 48.4 Monocytes % 10.6 Eosinophils % 0.7 Basophils % 1.0 Nucleated Red Blood 0.0 Cells % Immature Granulocytes # 0.010 Neutrophils # 1.6 Lymphocytes # 2.0 Monocytes # 0.4 Eosinophils # 0.0 Basophils # 0.0 Nucleated Red Blood 0.0 Cells # Sodium Level 135 Potassium Level 3.6 Chloride Level 102 Carbon Dioxide Level 23 Anion Gap 10 # Blood Urea Nitrogen 26 #H Creatinine 0.81 # Est Glomerular Filtrat > 60 Rate mL/min Glucose Level 89 Calcium Level 8.9 Phosphorus Level 3.2 Magnesium Level 2.3 Total Bilirubin 0.4 Direct Bilirubin 0.00 Indirect Bilirubin 0.4 Aspartate Amino 18 Transf (AST/SGOT) Alanine 11 L Aminotransferase (ALT/SG PT) Alkaline Phosphatase 63 Total Protein 6.6 # Albumin 3.8 # Globulin 2.80 Albumin/Globulin Ratio 1.35 Subjective 24 Hr Interval Summary Free Text/Dictation no nausea or vomiting today less lower abdominal pain Exam/Review of Systems Exam Vitals Vital Signs Date Temp Pulse Resp B/P (MAP) Pulse Ox O2 O2 Flow FiO2 Time Delivery Rate 12/10/18 98.7 64 20 109/75 100 Room Air 11:55 (86) Constitutional: alert, oriented, well developed Psych: no complaints, nl mood/affect Head: normocephalic, atraumatic Eyes: nl conjunctiva, EOMI, nl lids, PERRL ENMT: nl external ears & nose, nl lips & teeth, nl nasal mucosa & septum Neck: supple, non-tender Respiratory: clear to auscultation, normal air movement; No congested cough, No crackles/rales, No diminished breath sounds, No intercostal retraction, No labored breathing, No respirations, No tactile fremitus, No wheezing, No other Cardiovascular: regular rate and rhythm, nl pulses; No bruits, No diastolic murmur, No edema, No gallop, No irregular rhythm, No jugular venous distention (JVD), No murmurs/extra sounds, No rub, No systolic murmur, No S3, No S4, No other Gastrointestinal: soft, nl liver, spleen, non-tender Musculoskeletal: nl extremities to inspection Extremities: normal pulses; No calf tenderness, No cyanosis, No clubbing, No edema, No pitting pedal edema, No palpable cord, No tenderness, No other Neurological: OPHTHALMIC TECHNICIAN II-XII intact, nl mental status, nl speech, nl strength Results Results 24hrs Laboratory Tests Test 12/09/18 17:08 12/09/18 17:14 12/09/18 17:44 12/09/18 21:28 White Blood Count 6.2 # Red Blood Count 6.35 #H Hemoglobin 18.7 #H Hematocrit 53.3 #H Mean Corpuscular Volume 83.9 Mean Corpuscular 29.4 Hemoglobin Mean Corpuscular 35.1 Hemoglobin Concent Red Cell Distribution 12.0 Width Platelet Count 460 #H Mean Platelet Volume 9.1 Immature Granulocytes % 0.500 H Neutrophils % 62.0 Lymphocytes % 25.4 Monocytes % 11.1 H Eosinophils % 0.0 Basophils % 1.0 Nucleated Red Blood 0.0 Cells % Immature Granulocytes # 0.030 Neutrophils # 3.8 Lymphocytes # 1.6 Monocytes # 0.7 Eosinophils # 0.0 Basophils # 0.1 Nucleated Red Blood 0.0 Cells # Prothrombin Time 12.6 Prothrombin Time Ratio 1.0 INR International 0.93 Normalized Ratio Activated 33.9 Partial Thromboplast Time Sodium Level 135 Potassium Level 4.0 Chloride Level 94 L Carbon Dioxide Level 17 L Anion Gap 24 H Blood Urea Nitrogen 47 H Creatinine 2.68 H Est Glomerular Filtrat 24 L Rate mL/min Glucose Level 126 Calcium Level 10.8 H Total Bilirubin 0.6 Direct Bilirubin 0.00 Indirect Bilirubin 0.6 Aspartate Amino 22 Transf (AST/SGOT) Alanine < 6 L Aminotransferase (ALT/SG PT) Alkaline Phosphatase 125 H Troponin I < 0.012 Total Protein 10.7 H Albumin 5.4 H Globulin 5.30 H Albumin/Globulin Ratio 1.01 POC Venous Lactate 2.3 *H Urine Color YELLOW Urine Clarity CLOUDY A Urine pH 5.0 Urine Specific [place] 1.029 Urine Ketones 1+ H Urine Nitrite NEGATIVE Urine Bilirubin NEGATIVE Urine Urobilinogen NEGATIVE Urine Leukocyte Esterase TRACE A Urine Microscopic RBC 3 Urine Microscopic WBC 67 H Urine Squamous FEW Epithelial Cells Urine Hemoglobin NEGATIVE Urine Glucose NEGATIVE Urine Total Protein 2+ H Urine Test NEGATIVE Lactic Acid Level 0.9 Test 12/09/18 21:37 12/10/18 05:52 POC Venous Lactate 1.1 White Blood Count 4.1 #L Red Blood Count 4.62 # Hemoglobin 13.8 # Hematocrit 39.6 # Mean Corpuscular Volume 85.7 Mean Corpuscular 29.9 Hemoglobin Mean Corpuscular 34.8 Hemoglobin Concent Red Cell Distribution 12.1 Width Platelet Count 285 # Mean Platelet Volume 9.1 Immature Granulocytes % 0.200 Neutrophils % 39.1 Lymphocytes % 48.4 Monocytes % 10.6 Eosinophils % 0.7 Basophils % 1.0 Nucleated Red Blood 0.0 Cells % Immature Granulocytes # 0.010 Neutrophils # 1.6 Lymphocytes # 2.0 Monocytes # 0.4 Eosinophils # 0.0 Basophils # 0.0 Nucleated Red Blood 0.0 Cells # Sodium Level 135 Potassium Level 3.6 Chloride Level 102 Carbon Dioxide Level 23 Anion Gap 10 # Blood Urea Nitrogen 26 #H Creatinine 0.81 # Est Glomerular Filtrat > 60 Rate mL/min Glucose Level 89 Calcium Level 8.9 Phosphorus Level 3.2 Magnesium Level 2.3 Total Bilirubin 0.4 Direct Bilirubin 0.00 Indirect Bilirubin 0.4 Aspartate Amino 18 Transf (AST/SGOT) Alanine 11 L Aminotransferase (ALT/SG PT) Alkaline Phosphatase 63 Total Protein 6.6 # Albumin 3.8 # Globulin 2.80 Albumin/Globulin Ratio 1.35 Medications Medication Current Medications Ondansetron HCl (Zofran Inj) 4 mg BRIDGE ORDER PRN IV NAUSEA/VOMITING; Start 12/09/18 at 19:00; Stop 12/10/18 at 18:59 Acetaminophen (Tylenol Tab) 650 mg ER BRIDGE PRN PO .MILD PAIN 1-3 OR TEMP Last administered on 12/09/18at 21:59; Admin Dose 650 MG; Start 12/09/18 at 19:00; Stop 12/10/18 at 18:59 Sodium Chloride 1,000 ml @ 125 mls/hr Q8H IV Last administered on 12/10/18at 06:35; Admin Dose 125 MLS/HR; Start 12/09/18 at 22:12; Stop 12/12/18 at 22:11 IV Flush (NS 3 ml) 3 ml PER PROTOCOL IV ; Start 12/09/18 at 22:30 Acetaminophen (Tylenol Tab) 650 mg Q6H PRN PO .PAIN 1-3 OR TEMP; Start 12/09/18 at 22:30 Morphine Sulfate (morphine) 3 mg Q4H PRN IV .SEVERE PAIN 7-10 Last administered on 12/10/18at 12:12; Admin Dose 3 MG; Start 12/09/18 at 22:30 MALKA YANCEY MD December 10, 2018 14:35
[2018-12-10 16:24] VITALS: BP 121/71; PULSE 58; RESP 20
[2018-12-10] MEDS: CEFTRIAXONE 1 GM/50 ML (PMX) 50 ML IVPB SCH (17:14)
[2018-12-10 18:11] VITALS: BP 124/76; PULSE 64; RESP 16
[2018-12-10 20:00] VITALS: BP_SYST 111; BP_SYST 120; BP_DIAS 59; BP_DIAS 71; PULSE 63; PULSE 95; RESP 18
[2018-12-11 02:00] VITALS: BP 122/68; PULSE 60; RESP 17
[2018-12-11] MEDS: morphine 4 MG/ML VIAL IV PRN ×3 (03:22→20:31)
[2018-12-11] MEDS: SOD CHLORIDE 0.9% 1,000 ML IV SCH (04:36)
[2018-12-11 07:49] VITALS: BP 111/70; PULSE 60; RESP 16
--- NOTE | 2018-12-11 09:16 | PN ---
DATE: 12/11/2018 SUBJECTIVE: The patient is stable. No events overnight. OBJECTIVE: VITAL SIGNS: Blood pressure is 111/70, pulse 60, respirations 16, temperature 97.7. HEENT: Head is normocephalic. NECK: Supple. HEART: Regular rate. LUNGS: Show diminished breath sounds at the base. ABDOMEN: Soft, nontender to palpation. No rebound or guarding. EXTREMITIES: Negative for clubbing, cyanosis, no edema. DERMATOLOGIC: No rashes. MUSCULOSKELETAL: No joint effusion. NEUROLOGIC: No change in exam. MEDICATIONS: Reviewed. LABORATORY DATA: From 12/11/2018 has been reviewed. ASSESSMENT AND PLAN: 1. Nonoliguric acute kidney injury with previously normal baseline creatinine. Etiology of acute ki dney injury was secondary to hemodynamics, volume depletion. Renal function has improved with IV hyd ration. At this point, we will continue current treatment plan, supportive care, renally dose all me dications. We will discontinue IV fluids. 2. Lactic acidosis secondary to hemodynamics, volume depletion, improved. Continue to monitor. 3. Metabolic acidosis secondary to acute kidney injury, resolved. 4. Mineral bone disorder, monitor calcium and phosphorus levels. 5. Urinary tract infection. Continue current medical management, continue antibiotic therapy. 6. Erythrocytosis. Etiology is secondary to volume depletion, improved with IV hydration. Dictated By: JES GARNER DO NR/NTS Conf#: [id number] DID#: [id number] CC: MEGAN CANCHOLA MD; MALKA YANCEY MD;*EndCC*
[2018-12-11 14:29] VITALS: BP 119/72; PULSE 67; RESP 18
--- NOTE | 2018-12-11 16:15 | PN ---
Date/Time of Note Date/Time of Note DATE: 12/11/18 TIME: 16:12 Assessment/Plan VTE Prophylaxis Risk score (from [facility] [place]0 risk: 1 SCD applied (from [facility] [place]): Yes Pharmacological prophylaxis: other Pharm contraindication: other Lines/Catheters IV Catheter Type (from [facility]): Peripheral IV Urinary Cath still in place: No Assessment/Plan Assessment/Plan 1. UTI, on rocephin 2. Dehydration from vomiting and poor intake from UTI, improved with IVF, no vomiting today 3. Acute renal failure due to dehydration, resolved Result Diagram: 12/11/18 0617 12/11/18 0617 Results 24hrs Laboratory Tests Test 12/11/18 06:17 12/11/18 10:25 White Blood Count 2.9 #L Red Blood Count 4.11 L Hemoglobin 12.4 Hematocrit 35.8 L Mean Corpuscular Volume 87.1 Mean Corpuscular Hemoglobin 30.2 Mean Corpuscular Hemoglobin Concent 34.6 Red Cell Distribution Width 11.9 Platelet Count 249 Mean Platelet Volume 9.3 Immature Granulocytes % 0.300 Neutrophils % 36.8 L Lymphocytes % 47.7 Monocytes % 13.2 H Eosinophils % 1.0 Basophils % 1.0 Nucleated Red Blood Cells % 0.0 Immature Granulocytes # 0.010 Neutrophils # 1.1 L Lymphocytes # 1.4 Monocytes # 0.4 Eosinophils # 0.0 Basophils # 0.0 Nucleated Red Blood Cells # 0.0 Sodium Level 139 Potassium Level 3.9 Chloride Level 108 Carbon Dioxide Level 26 Anion Gap 5 Blood Urea Nitrogen 15 # Creatinine 0.66 Est Glomerular Filtrat Rate mL/min > 60 Glucose Level 82 Calcium Level 8.4 Phosphorus Level 2.4 L Magnesium Level 2.0 Urine Color COLORLESS Urine Clarity CLEAR Urine pH 6.0 Urine Specific [place] 1.004 Urine Ketones NEGATIVE Urine Nitrite NEGATIVE Urine Bilirubin NEGATIVE Urine Urobilinogen NEGATIVE Urine Leukocyte Esterase NEGATIVE Urine Microscopic RBC 6 H Urine Microscopic WBC 1 Urine Squamous Epithelial Cells FEW Urine Hemoglobin 3+ H Urine Random Creatinine 22.31 Urine Random Sodium 44 Urine Glucose NEGATIVE Urine Total Protein 17.0 H Subjective 24 Hr Interval Summary Free Text/Dictation still has some lower abdominal pain, no nausea or vomiting today Exam/Review of Systems Exam Vitals Vital Signs Date Temp Pulse Resp B/P (MAP) Pulse Ox O2 O2 Flow FiO2 Time Delivery Rate 12/11/18 98.6 67 18 119/72 100 14:29 (88) 12/10/18 Room Air 11:55 Constitutional: alert, oriented, well developed Psych: no complaints, nl mood/affect Head: normocephalic, atraumatic Eyes: nl conjunctiva, EOMI, nl lids ENMT: nl external ears & nose, nl lips & teeth, nl nasal mucosa & septum Neck: supple, non-tender Respiratory: clear to auscultation, normal air movement; No congested cough, No crackles/rales, No diminished breath sounds, No intercostal retraction, No labored breathing, No respirations, No tactile fremitus, No wheezing, No other Cardiovascular: regular rate and rhythm, nl pulses; No bruits, No diastolic murmur, No edema, No gallop, No irregular rhythm, No jugular venous distention (JVD), No murmurs/extra sounds, No rub, No systolic murmur, No S3, No S4, No other Gastrointestinal: soft, nl liver, spleen, non-tender Musculoskeletal: nl extremities to inspection Extremities: normal pulses; No calf tenderness, No cyanosis, No clubbing, No edema, No pitting pedal edema, No palpable cord, No tenderness, No other 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4 Monocytes # 0.4 Eosinophils # 0.0 Basophils # 0.0 Nucleated Red Blood Cells # 0.0 Sodium Level 139 Potassium Level 3.9 Chloride Level 108 Carbon Dioxide Level 26 Anion Gap 5 Blood Urea Nitrogen 15 # Creatinine 0.66 Est Glomerular Filtrat Rate mL/min > 60 Glucose Level 82 Calcium Level 8.4 Phosphorus Level 2.4 L Magnesium Level 2.0 Urine Color COLORLESS Urine Clarity CLEAR Urine pH 6.0 Urine Specific [place] 1.004 Urine Ketones NEGATIVE Urine Nitrite NEGATIVE Urine Bilirubin NEGATIVE Urine Urobilinogen NEGATIVE Urine Leukocyte Esterase NEGATIVE Urine Microscopic RBC 6 H Urine Microscopic WBC 1 Urine Squamous Epithelial Cells FEW Urine Hemoglobin 3+ H Urine Random Creatinine 22.31 Urine Random Sodium 44 Urine Glucose NEGATIVE Urine Total Protein 17.0 H Medications Medication Current Medications IV Flush (NS 3 ml) 3 ml PER PROTOCOL IV ; Start 12/09/18 at 22:30 Acetaminophen (Tylenol Tab) 650 mg Q6H PRN PO .PAIN 1-3 OR TEMP; Start 12/09/18 at 22:30 Morphine Sulfate (morphine) 3 mg Q4H PRN IV .SEVERE PAIN 7-10 Last administered on 12/11/18at 09:43; Admin Dose 3 MG; Start 12/09/18 at 22:30 Ceftriaxone Sodium 50 ml @ 100 mls/hr Q24H IVPB Last administered on 12/10/18at 17:14; Admin Dose 100 MLS/HR; Start 12/10/18 at 17:30 MALKA YANCEY MD December 11, 2018 16:15
[2018-12-11] MEDS: CEFTRIAXONE 1 GM/50 ML (PMX) 50 ML IVPB SCH (18:04)
[2018-12-11 20:00] VITALS: BP 117/63; PULSE 66; RESP 18
[2018-12-12 02:00] VITALS: BP 114/65; PULSE 63; RESP 17
[2018-12-12] MEDS ORDERED: ZOLPIDEM 5 MG TAB PO PRN (02:00)
[2018-12-12 08:11] VITALS: BP 96/54; PULSE 77; RESP 18
[2018-12-12] MEDS: morphine 4 MG/ML VIAL IV PRN (08:21)
--- NOTE | 2018-12-12 10:45 | PN ---
DATE: 12/12/2018 SUBJECTIVE: The patient is stable. No events overnight. OBJECTIVE: VITAL SIGNS: Blood pressure is 96/64, respiration 18, pulse 77, temperature 98.2. HEENT: Head is normocephalic. NECK: Supple. HEART: Regular rate. LUNGS: Diminished breath sounds at the bases. ABDOMEN: Soft. Nontender to palpation. No rebound or guarding. EXTREMITIES: Negative for clubbing, cyanosis, no edema. DERMATOLOGIC: No rashes. MUSCULOSKELETAL: No joint effusion. NEUROLOGIC: No change in exam. MEDICATIONS: Reviewed. LABORATORY DATA: Reviewed. ASSESSMENT AND PLAN: 1. Nonoliguric acute kidney injury with previously normal baseline creatinine. Etiology of acute ki dney injury is secondary to hemodynamics, volume depletion. The patient's renal function has improve d. Continue current treatment plan, supportive care, renally dose all medications. 2. Lactic acidosis secondary to hemodynamic, volume depletion, resolved. 3. Metabolic acidosis secondary to acute kidney injury, resolved. 4. Mineral bone disorder. Monitor calcium and phosphorus levels. 5. Urinary tract infection. Continue current medical management, continue antibiotic therapy. 6. Erythrocytosis. Etiology is secondary to volume depletion, improved with IV hydration. Dictated By: JES GARNER DO NR/NTS Conf#: [id number] DID#: [id number] CC: MALKA YANCEY MD; MEGAN CANCHOLA MD;*End*
[2018-12-12 14:00] VITALS: BP 114/64; PULSE 65; RESP 17
[2018-12-12] MEDS ORDERED: LEVO250T9 PO (15:25)
--- NOTE | 2018-12-12 15:30 | DS ---
Date/Time of Note Date/Time of Note DATE: 12/12/18 TIME: 15:27 Discharge Summary Admission/Discharge Info Admit Date/Time December 09, 2018 at 18:40 Discharge Date/Time Discharge Diagnosis 1. UTI, stable, levaquin 2. Dehydration, resolved 3. Acute renal failure due to dehydration, resolved Patient Condition: Stable Hospital Course This is a 38-year-old female with possible history of GERD who presented to the ER complaining of bilateral flank pain. Patient was recently diagnosed with UTI and has been taking antibiotic. In the ER her UA was consistent with UTI. CT abdomen/pelvis without acute findings. Initial lactic acid was 2.3. Patient is treated with rocephin for UTI and IVF for sepsis and dehydration. Symptoms improved. Patient will be discharged with levaquin for 5 days, side effects informed. Home Meds Active Scripts Levofloxacin* (Levofloxacin*) 250 Mg Tablet, 250 MG PO DAILY for 5 Days, TAB Prov:MALKA YANCEY MD 12/12/18 Discontinued Reported Medications Cephalexin* (Cephalexin*) 250 Mg Capsule, 250 MG PO Q6, #28 CAP FOR 7 DAYS,START DATE 12/07/18 12/09/18 Discontinued Scripts Ondansetron Hcl* (Zofran*) 4 Mg Tablet, 4 MG PO Q6H PRN for NAUSEA AND OR VOMITI NG, #30 TAB Prov:BRAIN LIZARRAGA V. TANK FILLER 09/26/18 Famotidine* (Pepcid*) 20 Mg Tablet, 20 MG PO BED TIME, #30 TAB Prov:BRAIN LIZARRAGA V. TANK FILLER 09/26/18 Follow-up Plan PCP in one week Primary Care Provider Not On Staff Doctor MALKA YANCEY MD December 12, 2018 15:30
== END 2018-12-12 16:15 | disposition home or self-care (01) | DRG 689 ==
LOC: E/R 15:04 → MS3 18:40 → PP2 12-10 18:02
PROVIDERS: ADMIT Internal Medicine; ATTEND Internal Medicine
DX: N39.0 Urinary tract infection, site not specified (principal); E43 Unspecified severe protein-calorie malnutrition; N17.9 Acute kidney failure, unspecified; E87.2 Acidosis; Z68.1 Body mass index [BMI] 19.9 or less, adult; N12 Tubulo-interstitial nephritis, not specified as acute or chronic; E86.0 Dehydration; K21.9 Gastro-esophageal reflux disease without esophagitis; Z87.440 Personal history of urinary (tract) infections; D75.1 Secondary polycythemia
CPT/HCPCS: 36415; 71045; 74176; 80048; 80053; 81001; 81003; 82043; 83605; 83735; 84100; 84155; 84300; 84484; 84703; 85025; 85610; 85730; 87086; 93005; 96374; 96375; J0696; J2270; J2405; J7030